=== PATIENT | male | born 1950 | race Caucasian/White ===

== ENCOUNTER 2023-08-27 21:54 | Emergency (ER) | payer OTHER, SELFPAY ==
[2023-08-27 22:06] VITALS: BP 155/80; PULSE 70; RESP 18; TEMP 36.7; O2SAT 100; BMI 24.0
[2023-08-27] MEDS: SODIUM CHLORIDE 0.9% 1,000 ML 1000 ML IV (22:26)
[2023-08-27] MEDS: KETOROLAC 30 MG/ML VIAL 15 MG IV (22:26)
[2023-08-27] MEDS: HYDROMORPHONE 0.5 MG INJ IV (22:26)
[2023-08-27 22:31] LABS: Add Manual Diff / Slide Review NO; Basophils Absolute Auto 0 /uL (0-100); Basophils Percent Auto 0.6 % (0-2); Eosinophils Absolute Auto 100 /uL (0-450); Eosinophils Percent Auto 2.6 % (2-4); Lymphocytes Absolute Auto 1600 /uL (1100-4500); Lymphocytes Percent Auto 29.8 % (25-40); Mean Corpuscular HGB Conc 34.1 % (30-36); Mean Corpuscular Hemoglobin 30.1 PG (26-34); Mean Corpuscular Volume 88.3 fL (80-100); Monocytes Absolute Auto 600 /uL (0-900); Monocytes Percent Auto 10.1 % (3-14); Neutrophils Absolute Auto 3100 /uL (1500-7000); Neutrophils Percent Auto 56.9 % (50-75); Platelet Count 253 X10^3/uL (150-400); Red Blood Cell Count 4.98 X10^6/uL (4.5-5.9); Red Cell Distribution Width 13.2 % (11.6-14.8); White Blood Cell Count 5.5 X10^3/uL (4.5-11.0)
[2023-08-27 22:41] LABS: Alanine Aminotransferase 28 IU/L (<50); Albumin 4.4 g/dL (3.5-5.0); Albumin Globulin Ratio 1.5 (1.0-2.8); Alkaline Phosphatase 112 U/L (38-126); Aspartate Aminotransferase 40 IU/L (17-59); BUN Creatinine Ratio 43.1 (6-22); Bilirubin Total 0.9 mg/dL (0.2-1.3); Blood Urea Nitrogen 28 mg/dL (9-20); Calcium 9.7 mg/dL (8.4-10.2); Carbon Dioxide 29 mmol/L (22-32); Chloride 102 mmol/L (98-107); Estimated Glomerular Filt Rate > 60 mL/min (>60); Globulin 2.9 g/dL (1.7-4.1); Glucose 114 mg/dL (80-110); HEMOLYSIS < 15 (0-50); Potassium 4.1 mmol/L (3.4-5.1); Sodium 138 mmol/L (137-145); Total Protein 7.3 g/dL (6.3-8.2)
--- NOTE | 2023-08-27 23:33 | ED.BACK ---
HPI - Back Pain/Injury General Chief Complaint: Back Pain/Injury Stated Complaint: thinks a bowel Blockage Time Seen by Provider: 08/27/23 23:15 Source: patient and family History of Present Illness HPI Narrative: 72-year-old gentleman comes with left flank pain radiating to the testicle. Has some mild testicular pain starting yesterday and it became left-sided abdominal pain this afternoon but then as the day progressed became left flank pain and he had the opinion that it was a kidney stone which he is had multiple times previously. He also noticed some gross hematuria today. No dysuria urgency or frequency. No abdominal pain no vomiting no fever. Multiple kidney stones in the past. Related Data Allergies Allergy/AdvReac Type Severity Reaction Status Date / Time No Known Drug Allergies Allergy Verified 08/27/23 22:06 Patient History Social History Smoking Status: Never smoker Smoking Status: Never smoker Substance Use Type: does not use Exam Narrative Exam Narrative: GENERAL: Alert, cooperative and in no distress. HEAD: Atraumatic. Normocephalic. EYES: Sclera are clear without icterus. Extraocular movements are full. ENT: No rhinorrhea. NECK: Supple. Full range of motion. CARDIOVASCULAR: Normal rate and rhythm without murmur gallop or rub. RESPIRATORY: Clear to auscultation. Breath sounds equal bilaterally. No wheezes, rales, or rhonchi. GASTROINTESTINAL: Abdomen soft, non-tender, nondistended. EXTREMITIES: No edema, full range of motion. No obvious trauma. BACK: Normal inspection, no CVA tenderness. NEURO: Nonfocal examination, normal speech SKIN: No rash or erythema of visible areas PSYCH: Normally oriented. Normal range of affect. Appropriate behavior Initial Vital Signs Initial Vital Signs: Vital Signs Temperature 98.1 F 08/27/23 22:06 Pulse Rate 70 08/27/23 22:06 Respiratory Rate 18 08/27/23 22:06 Blood Pressure 155/80 H 08/27/23 22:06 Pulse Oximetry 100 08/27/23 22:06 Oxygen Delivery Method Room Air 08/27/23 22:06 Course Orders Ordered: ED Orders 08/27/23 22:25 CMP [Comprehensive Metabolic Panel] Stat Complete Blood Count AUTO DIFF Stat Hydrocodone Bitart/Acetaminophen (Hydrocodone/Acet 5/325 Prepack) 1 bottle MISC DIRECTED ONE Stop: 08/27/23 23:39 Discontinued Medications Hydromorphone HCl (Hydromorphone 0.5 Mg Inj) 0.5 mg IV NOW ONE Stop: 08/27/23 22:14 Last Admin: 08/27/23 22:26 Dose: 0.5 mg Documented By: AMV Sodium Chloride (Normal Saline 0.9%) 1,000 mls @ 1,000 mls/hr IV BOLUS ONE Stop: 08/27/23 23:12 Last Admin: 08/27/23 22:26 Dose: 1,000 mls/hr Documented By: AMV Ketorolac Tromethamine (Ketorolac 30 Mg/Ml Vial) 15 mg IV NOW ONE Stop: 08/27/23 22:15 Last Admin: 08/27/23 22:26 Dose: 15 mg Documented By: AMV Vital Signs Vital signs: Vital Signs - 8 hr 08/27/23 22:06 Temperature 98.1 F Pulse Rate 70 Respiratory Rate 18 Blood Pressure 155/80 H Pulse Oximetry 100 Oxygen Delivery Method Room Air MDM - Back Pain/Injury Lab Data 08/27/23 22:25 08/27/23 22:25 Labs: Lab Results 08/27/23 Range/Units 22:25 WBC 5.5 (4.5-11.0) X10^3/uL RBC 4.98 (4.5-5.9) X10^6/uL Hgb 15.0 (13.5-17.5) g/dL Hct 44.0 (41-53) % MCV 88.3 (80-100) fL MCH 30.1 (26-34) PG MCHC 34.1 (30-36) % RDW 13.2 (11.6-14.8) % Plt Count 253 (150-400) X10^3/uL Neut % (Auto) 56.9 (50-75) % Lymph % (Auto) 29.8 (25-40) % [place] % (Auto) 10.1 (3-14) % Eos % (Auto) 2.6 (2-4) % Baso % (Auto) 0.6 (0-2) % Neut # (Auto) 3100 (5768-0929) /uL Lymph # (Auto) 1600 (0195-4200) /uL [place] # (Auto) 600 (0-900) /uL Eos # (Auto) 100 (0-450) /uL Baso # (Auto) 0 (0-100) /uL Sodium 138 (137-145) mmol/L Potassium 4.1 (3.4-5.1) mmol/L Chloride 102 (98-107) mmol/L Carbon Dioxide 29 (22-32) mmol/L BUN 28 H (9-20) mg/dL Creatinine 0.65 L (0.66-1.25) mg/dL Estimated GFR > 60 (>60) mL/min BUN/Creatinine Ratio 43.1 H (6-22) Glucose 114 H (80-110) mg/dL Calcium 9.7 (8.4-10.2) mg/dL Total Bilirubin 0.9 (0.2-1.3) mg/dL AST 40 (17-59) IU/L ALT 28 (<50) IU/L Alkaline Phosphatase 112 (38-126) U/L Total Protein 7.3 (6.3-8.2) g/dL Albumin 4.4 (3.5-5.0) g/dL Globulin 2.9 (1.7-4.1) g/dL Albumin/Globulin Ratio 1.5 (1.0-2.8) MDM Narrative Medical decision making narrative: When I am seeing the patient he has no symptoms at all. Therapies administered completely resolved his symptoms. I do not think imaging is indicated given the likelihood of the diagnosis being very high Discharge Plan Departure Patient Disposition: Home Clinical Impression: Renal colic Instructions: Kidney Stones -- Adult Activity Restrictions/Additional Instructions: It seems likely that your symptoms tonight were caused by a kidney stone. If the symptoms are not resolved within a week, you should follow-up with your doctor. If you have severe symptoms that you can not control with home medications including the strong pain medication provided here tonight, he should return to the ED. She would always return within hours if you develop fever associated with kidney stone type pain. Stand Alone Forms: Patient Portal/API
[2023-08-28] MEDS: HYDROCODONE/ACET 5/325 PREPACK 1 BOTTLE MISC (00:05)
[2023-08-28 00:10] VITALS: BP 127/67; PULSE 67; RESP 18; TEMP 36.8; O2SAT 97
== END 2023-08-28 00:10 | disposition home or self-care (01) ==
PROVIDERS: Emergency Provider Family Medicine Addiction Medicine
DX: N23 Unspecified renal colic (principal)
CPT/HCPCS: 36415; 80053; 85025; 96361; 96374; 96375; 99284; J1170; J1885